=== PATIENT | female | born 1940 | race Caucasian/White ===

== ENCOUNTER 2017-07-26 12:06 | Emergency (ER) | payer MEDICARE, SELFPAY ==
[2017-07-26 12:08] VITALS: BP 156/106; PULSE 111; RESP 18; TEMP 37.4; O2SAT 95; BMI 31.1
[2017-07-26 12:20] VITALS: BP 173/88; PULSE 113; RESP 16; O2SAT 97
--- NOTE | 2017-07-26 13:10 | CT_ITS ---
STUDY: CT BRAIN WITHOUT CONTRAST REASON FOR EXAM: Female, 77 years old. Vertigo. History of fall with abrasions to the right foreleg. RADIATION DOSAGE (If Supplied By Facility): CTDIvol = ( 60.81 ) mGy, DLP = ( 998.67 ) mGycm TECHNIQUE: Transaxial CT imaging of the brain was performed without administration of intravenous contrast material. Individualized dose optimization techniques were used for this CT. COMPARISON: None. FINDINGS: Scallop hematoma overlying the right frontal bone. Normal calvarium. There is mild cerebral atrophy with widening of the extra-axial spaces and ventricular dilatation. Normal white matter tracts of the cerebral hemispheres. Normal basal ganglia and thalami. Normal brainstem. Normal cerebellum. There is no intracranial hemorrhage. There are no findings of an acute ischemic infarction. Atherosclerotic calcification of the cavernous portions of the internal carotid arteries bilaterally as well as vertebral arteries. Normal visualized paranasal sinuses. CT/Brain/Head without Contrast IMPRESSION: Chronic involutional changes of the brain. Scalp hematoma overlying the right frontal bone. Electronically Signed: Akhil Rg MD at 13:46 EST Tel [phone], Service support ,
--- NOTE | 2017-07-26 13:10 | RAD_ITS ---
STUDY: X-RAY - RIGHT HUMERUS REASON FOR EXAM: Female, 77 years old. Pain following a fall. TECHNIQUE: AP and lateral view(s) of the humerus. COMPARISON: None. FINDINGS: Normal visualized humerus. There is no demonstrated fracture or osseous destructive process. Soft tissue swelling. RAD/Humerus min 2 Views IMPRESSION: Soft tissue swelling. No fracture seen. Electronically Signed: Akhil Rg MD at 13:53 EST Tel [phone], Service support ,
--- NOTE | 2017-07-26 13:10 | CT_ITS ---
STUDY: CT CERVICAL SPINE WITHOUT CONTRAST REASON FOR EXAM: Female, 77 years old. Vertigo. Abrasions to the right forehead. Fall. RADIATION DOSAGE (If Supplied By Facility): CTDIvol = ( 20.69 ) mGy, DLP = ( 323.10 ) mGycm TECHNIQUE: High resolution transaxial imaging was performed without contrast material. Sagittal and coronal images were reconstructed. Individualized dose optimization techniques were used for this CT. COMPARISON: None FINDINGS: Normal craniovertebral junction. There are degenerative changes of the anterior atlantoaxial articulation. Normal odontoid process. Normal cervical lordosis. Normal vertebral bodies and posterior osseous elements. C2-3: Normal endplates. Normal disc height and morphology. Normal central canal and intervertebral neuroforamina. 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 C3-4: Mild degree of disc space narrowing. Uncovertebral arthrosis. Facet joint osteoarthritis and hypertrophy worse on the right side with a moderate degree of right neural foraminal stenosis. C4-5: Moderate degree of disc space narrowing. Uncovertebral arthrosis. Mild degree of bilateral neural foraminal stenosis. C5-6: Moderate degree of disc space narrowing. Uncovertebral arthrosis. Facet joint osteoarthritis worse on the left side. C6-7: Mild degree of anterior listhesis of C6 on C7. Facet joint osteoarthritis and hypertrophy worse on the left side. Calcification of the carotid bifurcation bilaterally. CT/Spine Cervical without Contras IMPRESSION: Multilevel degenerative changes, as described above. Atherosclerotic calcification of the carotid bifurcations bilaterally. Electronically Signed: Akhil Rg MD at 14:00 EST Tel [phone], Service support ,
--- NOTE | 2017-07-26 14:05 | ED.VISSUMM ---
- ER Visit Summary Date of Service: 07/26/17 Chief Complaint: Fall History of Present Illness: The patient is a 77 F who presents after a fall. She was blow drying her hair with her head upside down when she began to feel dizzy and fell forward. She hit her head on the edge of the metal frame of the bed. No loss of consciousness no amnesia. She has been able to ambulate with no difficulty. She denies any headache or vomiting. She is not on anticoagulation. She does complain of some right arm pain and neck pain as well. Physical Examination: Initial heart rate 113 vitals otherwise unremarkable Patient does have a hematoma over the right forehead Pupils are equal round and reactive No evidence of depressed skull fracture Heart regular rate and rhythm on auscultation Lungs are clear Abdomen soft nontender Active full range of motion ?4 extremities patient does have ecchymosis and soft tissue swelling with hematoma of the right arm no deformity active full range of motion of the shoulder and elbow without pain Neck is nontender GCS is 15 with no focal or lateralizing neurological deficits, alert and oriented Test Results: CT of the head shows chronic changes in scalp hematoma. CT of the cervical spine shows multilevel degenerative changes with no fracture. Humerus x-ray shows no fracture. Emergency Department Course and Treatment: Imaging unremarkable. Patient instructed on supportive care. She understands to return for new or worsening symptoms and was instructed on specific signs and symptoms to monitor for. I do believe her dizziness and fall were related to position not believe any further workup indicated further dizziness. Treatment Plan: [] Disposition: Discharge Impression: Head injury Scalp hematoma Right arm hematoma This note was generated with [employer] dictation software. It may contain incorrect words, spelling, and punctuation that were not noted in review of the chart prior to signing ED Disposition - Plan for ED Patient: Chief Complaint: Fall Referrals: Nael Yi [Primary Care Provider] -
--- NOTE | 2017-07-26 14:08 | ED.DEP ---
ED Disposition - Plan for ED Patient: Chief Complaint: Fall Instructions: ED Mechanical Fall, ED Hematoma, ED Head Injury Closed Referrals: Nael Yi [Primary Care Provider] -
[2017-07-26 14:25] VITALS: BP 179/91; PULSE 102; PULSE 103; RESP 17; O2SAT 93; O2SAT 94
== END 2017-07-26 14:31 | disposition home or self-care (01) ==
PROVIDERS: Emergency Provider Emergency Medicine; Family Provider Family Medicine; PCP Family Medicine
DX: S00.03XA Contusion of scalp, initial encounter (principal); S40.021A Contusion of right upper arm, initial encounter; W18.39XA Other fall on same level, initial encounter; Y93.89 Activity, other specified; Y92.9 Unspecified place or not applicable; I10 Essential (primary) hypertension; F32.9 Major depressive disorder, single episode, unspecified; Z79.82 Long term (current) use of aspirin; Z79.899 Other long term (current) drug therapy
CPT/HCPCS: 70450; 72125; 73060; 99282

== ENCOUNTER 2025-02-06 13:13 | Emergency (ER) | payer MEDICARE, SELFPAY ==
[2025-02-06 13:15] VITALS: BP 175/83; PULSE 78; RESP 16; TEMP 37.1; O2SAT 98; BMI 30.5
[2025-02-06 14:14] VITALS: BP 156/85; PULSE 85; RESP 19; O2SAT 96
[2025-02-06 14:47] VITALS: BP 154/80; PULSE 97; RESP 18; O2SAT 94
--- NOTE | 2025-02-06 14:47 | EKG12_ITS ---
Test Reason : DIZZY Blood Pressure : */* mmHG Vent. Rate : 97 BPM Atrial Rate : 97 BPM P-R Int : 176 ms QRS Dur : 134 ms QT Int : 398 ms P-R-T Axes : 44 -61 13 degrees QTcB Int : 505 ms Normal sinus rhythm LAFB Right bundle branch block Abnormal ECG Confirmed by Lake Saldaña ([id number]), city editor JOHN AVALOS ([id number]) on 02/07/2025 8:18:20 AM Referred By: Confirmed By: [place] Saldaña
--- NOTE | 2025-02-06 14:48 | CT_ITS ---
PROCEDURE: STROKE CTA HEAD AND NECK W/CON 02/06/2025 REASON FOR EXAM: INTERMITTENT DIZZINESS; SX RESOLVED NOW TECHNIQUE: Procedure Code: CTCTA.ST.HN Modality: CT Procedure: STROKE CTA HEAD AND NECK W/CON Multiplanar Sagittal and Coronal images were obtained. 3D post processing was performed CONTRAST: Isovue 370 VOLUME: 100 mL One or more dose reduction techniques were used (e.g., Automated exposure control, adjustment of the mA and/or kV according to patient size, use of iterative reconstruction technique). RADIATION DOSE SUMMARY: CTDlvol: 75 mGy DLP: 1305 mGycm COMPARISON: None FINDINGS: Head CT: No evidence of acute ischemia or hemorrhage. Low-density in the periventricular white matter and to a lesser extent the deep white matter represents chronic microvascular ischemic changes. No midline shift or mass effect. No extra-axial collection. No hydrocephalus. Mastoid air cells are clear. Paranasal sinuses are clear. Aortic Arch: Partially imaged. Origin of the left common carotid not seen. Mild atherosclerotic plaque. Brachiocephalic and Subclavians: Mild atherosclerotic plaque without significant stenosis. RIGHT Carotid: Right CCA: Unremarkable except for some mild mural plaque at the carotid bifurcation. Right ICA: Mild atherosclerotic plaque proximally. Mild cavernous and supraclinoid atherosclerotic plaque. Maximum stenosis (NASCET): Less than 25 % Right ECA: Unremarkable. LEFT Carotid: Left CCA: Unremarkable except for some mild mural plaque at the carotid bifurcation. Left ICA: Mild atherosclerotic plaque proximally. Mild cavernous and supraclinoid atherosclerotic plaque. Maximum stenosis (NASCET): Less than 25 % Left ECA: Unremarkable. Vertebrals: Codominant. Arise from the subclavians. Both vertebrals form the basilar. RIGHT Vertebral: Unremarkable. LEFT Vertebral: Unremarkable. Anatomy: [place] anatomy is normal. Aneurysm or avm: No intracranial aneurysms or large vascular malformations are identified. Anterior cerebral arteries: Unremarkable. Middle cerebral arteries: Unremarkable. Basilar artery: Unremarkable. Posterior cerebral arteries: Unremarkable. Other major branches of the posterior circulation: Unremarkable. Major venous structures: Unremarkable. Other findings: Neck: No lymphadenopathy. Lungs: Lung apices are clear. Bones: Bones are unremarkable. CT/STROKE CTA Head AND Neck W/Con IMPRESSION: 1. No acute intracranial abnormality. 2. Mild chronic changes of microvascular ischemia. Mild volume loss. 3. No large vessel occlusion. No aneurysm or stenosis. Findings and impression of the report were called directly to Dr. Llamas at 3:5 0 p.m. Eastern standard time. Reading [id number]
--- NOTE | 2025-02-06 14:48 | EX.ED.DYSGE1 ---
HPI History of Present Illness Chief Complaint: Dizziness Informant: patient and family (daughter) Narrative Narrative: 84-year-old female states about half hour after she got up this morning, which was 6:30 AM, she was walking and knows that she was really off balance. This was around 0700. Then later she was sitting in her chair at her kitchen, and she noticed that she started getting very dizzy, she states it felt like swimming. She did not feel lightheaded. She had some transient vision disturbance that is difficult for her to describe but it was not diplopia or gross blurry. She denies any recent earache or hearing changes or other URIs in the past month, she states yesterday and today she had had some throat drainage that is unusual for her. No fevers, chills, cough, dyspnea. She denies any other focal neurologic symptoms today. She states the dizziness is resolved at this time. She has no symptoms right now. She denies any associated nausea or vomiting. She has never had this or any vertigo in the past. She takes aspirin every day, no other antiplatelet or anticoagulant medications. She states she felt full in her head but no headache. [facility] Medical History (Updated 02/06/25 @ 16:[address] Rafiq Llamas MD) Dizziness Home Medications ?Medication ?Instructions ?Recorded ?Last Taken ?Type sertraline 25 mg tablet (Zoloft) 25 mg PO DAILY 05/18/14 12/18/15 History 25 MG vitamin B complex 1 ea PO DAILY 05/18/14 12/17/15 History 1 EACH Valsartan/Hydrochlorothiazide 360 mg PO DAILY 12/06/15 12/18/15 History [Diovan Hct 160-12.5 Mg Tab] 1 TABLET atenolol 25 mg tablet 25 mg PO QDAY 02/06/25 Unknown History meclizine 25 mg tablet 25 mg PO TID PRN dizziness #20 tabs 02/06/25 Unknown Rx meloxicam 15 mg tablet 15 mg PO QDAY 02/06/25 Unknown History Allergy/AdvReac Type Severity Reaction Status Date / Time amoxicillin trihydrate (From AdvReac ANXIETY Verified 02/06/25 13:15 Augmentin) potassium clavulanate (From AdvReac ANXIETY Verified 02/06/25 13:15 Augmentin) Family History (Updated 02/06/25 @ 12:47 by Sanjana Gomes MA) Other Arthritis Surgical History History of hip replacement Hx of total knee replacement History of back surgery Social History (Updated 02/06/25 @ 12:47 by Sanjana Gomes MA) Smoking Status: Never smoker alcohol intake: never ROS ROS ED Constitutional Constitutional ED: Denies chills or fever(s) Eyes Eyes: Reports change in vision bilateral (transient, gone; no visual field cuts); Denies diplopia ENT ENT ED: Denies ear pain, rhinorrhea or sore throat Cardiovascular Cardiovascular: Denies chest pain or palpitations Respiratory/Chest Respiratory/Chest: Denies cough or dyspnea Gastrointestinal Gastrointestinal: Denies abdominal pain, diarrhea, nausea or vomiting Genitourinary Genitourinary ED: Denies dysuria or hematuria Musculoskeletal Musculoskeletal: Denies back pain or neck pain Integumentary Denies abscess or rash Neurologic Neurologic: Reports as per HPI, disequilibrium and dizziness; Denies abnormal hearing, headache(s), paresthesias or weakness Psychiatric Psychiatric: Denies anxiety or suicidal thoughts EXAM Physical Exam Const Vital Signs: 02/06/25 13:15 02/06/25 14:14 02/06/25 14:47 Temperature 98.7 F Temperature Source Oral Pulse Rate 78 85 Respiratory Rate 16 19 H Blood Pressure 175/83 H 156/85 H Blood Pressure Mean 113 108 Pulse Ox 98 96 Oxygen Delivery Method Room Air Room Air Room Air 02/06/25 14:47 02/06/25 16:00 Temperature Temperature Source Pulse Rate 97 89 Respiratory Rate 18 18 Blood Pressure 154/80 H 154/80 H Blood Pressure Mean 104 104 Pulse Ox 94 98 Oxygen Delivery Method Room Air Room Air Positive well nourished and well developed General Appearance ED: well developed and NAD HEENT Reports TM's clear and moist mucous membranes normocephalic and atraumatic Tympanic Membrane ED: Yes TM's clear bilateral (Right TM is mostly occluded by cerumen but piece of it is normal-appearing in color.) Eyes PERRL and EOMs intact bilaterally Neck full ROM and supple Neck Narrative: No carotid bruits bilaterally Resp normal respiratory effort and clear to auscultation bilaterally Cardio regular rate, regular rhythm and no murmurs GI non-tender and non-distended Auscultation: normoactive bowel sounds Palpation: soft Back/Spine no CVA tenderness General Back: other FROM Extremity normal to inspection General Extremety ED: Negative for edema, pulses abnormal or tenderness General Extremity: Negative for edema or pulses abnormal Neuro oriented x3, CN's II-XII intact bilaterally and no sensory deficits noted Neuro Narrative: No dysmetria. No dysarthria. No aphasia. Sensorium / Orientation: awake and alert Motor Exam: strength 5/5 throughout Skin no rashes or lesions noted and no wounds NIHSS NIHSS Initial: 1a Level of Consciousness: 0 1b LOC Questions (Score 2 if aphasic/stupor): 0 1c LOC Commands (Only score 1st attempt): 0 2 Best Gaze (If aphasic, use reflexive mvmts.): 0 3 Visual: 0 4 Facial Palsy: 0 5 Motor Arm Right (UN = amputation/fusion): 0 5 Motor Arm Left: 0 6 Motor Leg Right: 0 6 Motor Leg Left: 0 7 Limb ataxia (Only + if out of proportion): 0 8 Sensory (Aphasia/stupor=0 or 1, coma=2): 0 9 Best Language: 0 10 Dysarthria (mute, coma=2, intubated=UN): 0 11 Extinction and Inattention (only scored if +): 0 Total Score: 0 MDM MDM MDM Narrative Medical decision making narrative: Patient is asymptomatic so hints exam is not really applicable right now. I did [place]-Hallpike, she briefly had symptoms when I did it to the left, they went away very quickly, not enough time to perform a hints, and to the right she was asymptomatic. She does not have any nystagmus with any of this. As I discussed with her, this suggest a peripheral etiology, her blood pressure has been fluctuating and she was 175/83 when she first got here, during my examination she is 137/72, and then her next blood pressure was 187 systolic. Central etiologies are in the differential such as TIA, but I did not call a stroke alert because she is asymptomatic. I did perform CT angiography of the head and neck, and spoke with the radiologist regarding the results which I agree with, it is essentially negative for any acute. No LVO. EKG shows sinus rhythm, she had no episodes of A-fib while on the monitor here and her blood tests are unremarkable showing no signs of acute anemia or other major issues. On reevaluation she states her symptoms are gone but when she got up to walk to the bathroom she still felt a little off balance. She did not have gross ataxia and was able to walk without assistance. My concern here is that she is having some central ataxia without dysmetria and she may be having central etiology of her symptoms especially without a trigger. I recommend admission for further workup which includes but not necessarily exclusive of MRI, echo, carotid Dopplers. She is on baby aspirin, these test would be necessary in order to evaluate risk-benefit profile for leaving her on aspirin versus adding clopidogrel versus changing anticoagulation. She understands the risk including of having a major stroke if these are TIAs she is having, and she feels that this is related to her congestion, understands the risks, and wants to leave AGAINST MEDICAL ADVICE. Certainly peripheral etiologies are in the differential but she is not examining definitively like a peripheral vertigo, hence my recommendation for admission. Daughter was present throughout this entire discussion, and patient was given to meclizine and a prescription of that advised to follow-up with her doctor soon as possible or return if she changes her mind feels worse. Lab Data Attestation: I reviewed the patient's lab results. Labs: Laboratory Results - last 24 hr 02/06/25 13:37 WBC 8.0 RBC 4.62 Hgb 13.8 Hct 41.4 MCV 89.6 MCH 29.9 MCHC 33.3 RDW Std Deviation 45.3 H RDW Coeff of Flash 14.0 Plt Count 272 MPV 9.8 Immature Gran % (Auto) 0.300 Neut % (Auto) 67.7 Lymph % (Auto) 22.6 [place] % (Auto) 6.9 Eos % (Auto) 2.0 Baso % (Auto) 0.5 Absolute Neuts (auto) 5.4 Absolute Lymphs (auto) 1.80 Nucleated RBC % 0 PT 13.1 INR 1.0 APTT 26.8 Sodium 138 Potassium 3.6 Chloride 101 Carbon Dioxide 21.9 Anion Gap 16 H BUN 18 Creatinine 0.88 Estim Creat Clear Calc 50.67 Est GFR (MDRD) Non-Af 65 BUN/Creatinine Ratio 20.4 H Glucose 146 H Calcium 9.6 Troponin T High Sens 9 Radiography Diagnostic Testing: Clinical Impression(s) from Imaging Studies Head/Neck CTA 02/06/25 14:48 IMPRESSION: 1. No acute intracranial abnormality. 2. Mild chronic changes of microvascular ischemia. Mild volume loss. 3. No large vessel occlusion. No aneurysm or stenosis. Findings and impression of the report were called directly to Dr. Llamas at 3:50 p.m. Eastern standard time. Reading [id number] Rhythm Strip Rhythm Strip: Sinus Rhythm Rate: 95 Ectopy: None EKG Initial EKG: Attestation: I personally reviewed and interpreted this EKG as follows: Interpretation: Sinus Rhythm, No Acute Injury Pattern and LAFB Prior EKG tracings: not available for review Prior: No Prior Management Discussion w/another healthcare provider: Radiologist Discharge Plan Triage Chief Complaint: Dizziness ED Provider: Rafiq Llamas Dx/Rx/DC Orders Clinical Impression: Dysequilibrium, Dizziness, Accelerated hypertension Instructions: ED Dizziness, Uncertain Cause Prescriptions: New meclizine 25 mg tablet 25 mg PO TID PRN (Reason: dizziness) Qty: 20 0RF No Action atenolol 25 mg tablet 25 mg PO QDAY meloxicam 15 mg tablet 15 mg PO QDAY sertraline [Zoloft] 25 MG tablet 25 mg PO DAILY Patient Comments: ANTIDEPRESSANT vitamin B complex 1 EACH capsule 1 ea PO DAILY Patient Comments: SUPPLEMENT Valsartan/Hydrochlorothiazide [Diovan Hct 160-12.5 Mg Tab] 1 TABLET tablet 360 mg PO DAILY Patient Comments: blood pressure Primary Care Provider: Nael Yi Referrals: Nael Yi MD [Primary Care Provider] - As soon as possible Print Language: Emirati Disposition Disposition: Against Medical Advice Stroke Documentation Questions Stroke Team Activated: No (sx resolved) IV Thrombolytic Administered: No (sx resolved, nihss 0)
[2025-02-06 14:59] LABS: Hematocrit 41.4 % (37-47); Hemoglobin 13.8 g/dL (12.0-15.0); Immature Granulocytes Count 0.020 X10^3/uL (0.0-0.0); Mean Corp Hgb Conc 33.3 g/dL (32-36); Mean Corpuscular Volume 89.6 fL (81-99); Mean Platelet Vol. 9.8 fl (6.2-12.0); NRBC Flagged by Analyzer 0 % (0-5); Platelet Count 272 K/mm3 (150-450); RBC Distribution Width CV 14.0 % (11.6-14.6); RBC Distribution Width SD 45.3 fl (35.1-43.9); Red Blood Count 4.62 M/mm3 (4.2-5.4); White Blood Count 8.0 K/mm3 (4.4-11.0)
[2025-02-06 15:05] LABS: Partial Thromboplast Time 26.8 Seconds (24.1-36.2); Prothrombin Time (Protime)PT. 13.1 SECONDS (11.7-14.9)
[2025-02-06 15:35] LABS: Anion Gap 16 (5-15); BUN 18 mg/dL (4-19); BUN/Creat Ratio 20.4 RATIO (10-20); Calcium,Total 9.6 mg/dL (7.6-11.0); Carbon Dioxide 21.9 mmol/L (21.0-32.0); Chloride 101 mmol/L (98-108); Estimated Creatinine Clearance 50.67 ml/min (50-250); Glucose 146 mg/dL (70-99); Potassium 3.6 mmol/L (3.3-5.1); Troponin T High Sensitivity 9 ng/L (<=14)
[2025-02-06 16:00] VITALS: BP 154/80; PULSE 89; RESP 18; O2SAT 98
[2025-02-06 16:58] VITALS: BP 156/81; PULSE 97; RESP 18; TEMP 37; O2SAT 93
== END 2025-02-06 17:13 | disposition left against medical advice (07) ==
PROVIDERS: Emergency Provider Emergency Medicine; PCP Family Medicine; Visit Provider Emergency Medicine
DX: R42 Dizziness and giddiness (principal); I10 Essential (primary) hypertension; I44.4 Left anterior fascicular block; Z79.82 Long term (current) use of aspirin; Z53.29 Procedure and treatment not carried out because of patient's decision for other reasons
CPT/HCPCS: 70496; 70498; 80048; 84484; 85025; 85610; 85730; 93005; 99284; Q9967; A4216